=== PATIENT | female | born 1960 | race Caucasian/White ===

== ENCOUNTER 2019-04-27 22:31 | Emergency (ER) | payer OTHER ==
[~2019-04-27] VITALS: Ht 170.2 cm; Wt 115.5 kg
[~2019-04-27 22:31] MED LIST: CLEAPOW10 PO; CYCL5TAB PO; DEXA4TA PO; FULP6INJ SC; GABA-843 PO; IBUP80TA PO; LISI10TA4 PO; LORA-674 PO; METF-791 PO; PERC5TAB12 PO; PROC10TA4 PO; SIMV20TA22 PO
[2019-04-27] MEDS ORDERED: ONDA8TAB10 (22:49)
[2019-04-28 00:16] LABS: HEMATOCRIT 35.4 % (36.0-47.0); MEAN CORPUSCULAR HEMOGLOBIN 29.4 pg (27.0-33.0); MEAN CORPUSCULAR HGB CONC 33.9 g/dl (32.0-36.5); MEAN CORPUSCULAR VOLUME 86.8 fl (80.0-96.0); PLATELET COUNT, AUTOMATED 133 10^3/uL (150-450); RED BLOOD COUNT 4.08 10^6/uL (4.00-5.40); WHITE BLOOD COUNT 9.5 10^3/uL (4.0-10.0)
[2019-04-28 00:28] LABS: ALBUMIN 3.3 GM/DL (3.2-5.2); ALT/SGPT 21 U/L (12-78); BILIRUBIN,TOTAL 0.6 MG/DL (0.2-1.0); BLOOD UREA NITROGEN 14 MG/DL (7-18); CALCIUM LEVEL 7.8 MG/DL (8.5-10.1); CARBON DIOXIDE LEVEL 25 MEQ/L (21-32); CHLORIDE LEVEL 106 MEQ/L (98-107); CREATININE FOR GFR 0.81 MG/DL (0.55-1.30); GLOMERULAR FILTRATION RATE > 60.0 (>51); GLUCOSE, FASTING 125 MG/DL (70-100); POTASSIUM SERUM 3.4 MEQ/L (3.5-5.1); SODIUM LEVEL 137 MEQ/L (136-145); TOTAL PROTEIN 6.7 GM/DL (6.4-8.2)
[2019-04-28] MEDS ORDERED: ACETAMINOPHEN TAB 650MG DOSE (2X325MG) PO ONE (00:30)
[2019-04-28 00:39] LABS: ATYPICAL LYMPH 1 % (0-5); LYMPHOCYTES 14 % (16-44); METAMYELOCYTES 9 % (0-0); MYELOCYTES 2 % (0-0); NEUTROPHILS 73 % (28-66); PLATELET ESTIMATE NORMAL (NORMAL)
[2019-04-28 01:46] VITALS: BP 150/68
--- NOTE | 2019-04-28 09:33 | REP ---
PA AND LATERAL CHEST: 04/27/2019. Clinical history: Fever. Findings: No prior studies. The lungs are well inflated. There are perihilar cuffed bronchi suggesting a bronchitis or reactive airway disease. No dense consolidation or effusion. The heart, mediastinal and hilar contours were normal. Aorta and airway were intact. Bony thorax shows marginal osteophytes but no compression deformity. No free air under the diaphragm. Impression: 1. Perihilar changes of bronchitis or reactive airway disease without dense consolidation, pleural effusion, atelectasis or mass. 2. No cardiomegaly or edema. Electronically Signed by London Kendall MD 04/28/2019 07:52 P
== END 2019-04-28 01:59 | disposition home or self-care (01) ==
LOC: M ED 22:31
DX: R50.9 Fever, unspecified (principal); E11.9 Type 2 diabetes mellitus without complications; I10 Essential (primary) hypertension; E78.00 Pure hypercholesterolemia, unspecified; Z79.899 Other long term (current) drug therapy; Z79.84 Long term (current) use of oral hypoglycemic drugs

== ENCOUNTER → 2019-06-08 | Outpatient (CLI) | payer OTHER ==
[~2019-06-08] MED LIST changes: +MIRA3350 PO; +ONDA8TAB10; +ZARX0.05 SUBQ
--- NOTE | 2019-06-12 09:01 | RADONC ---
RADIATION ONCOLOGY CONSULTATION NOTE DATE OF SERVICE: 06/08/2019 CHART NUMBER: [id number] DIAGNOSIS: Left breast cancer. STAGE: Stage I A, T1b, N1a, M0 grade 1, well-differentiated infiltrating ductal carcinoma of the left breast, ER positive, OH positive, HER2/ray negative, oncotype score 26. ECOG PERFORMANCE STATUS: 0. CONSULTATION NOTE: Ms. Gillespie is the delightful 58-year-old white female with the diagnosis of what appears to be a stage I A, T1b, N1a, M0, well-differentiated infiltrating ductal carcinoma of the left breast, which is ER positive, OH positive, HER2/ray negative with an oncotype score of 26 who is presenting to us today status post lumpectomy, sentinel lymph node biopsy and systemic therapy consisting of cyclophosphamide and docetaxel, as well as intraoperative radiation therapy to the primary site for consideration of postoperative radiation therapy in order to achieve the increased likelihood of achieving local control and cure. HISTORY OF PRESENT ILLNESS: The patient was in the usual state of health until mammogram was undertaken, which revealed a lesion in the lower outer quadrant of her left breast. On 01/24/2019, the patient underwent lumpectomy and sentinel lymph node biopsy. Pathology revealed a well-differentiated 6 mm infiltrating ductal carcinoma. The tumor was noted to be estrogen receptor and progesterone receptor positive and HER2/ray negative. Margins of resection were negative for malignancy. There was some focal atypical ductal hyperplasia. There was infiltrating ductal carcinoma with partial thermal artifact at the lateral margin. One of two sentinel lymph nodes were biopsied and there was 6 mm of invasive metastatic disease in the axillary lymph node. This included extra alem extension into the adipose tissue. The patient received intraoperative radiation therapy to her primary site for a dose of 2000 cGy. The patient did well and has subsequently been treated with chemotherapy consisting of Cytoxan and Taxotere. She reports that her last chemotherapy was Tuesday this week, 06/05/2019. She is now presenting for consideration of postoperative radiation therapy, especially in the light of her extranodal extension in the axilla. PAST MEDICAL HISTORY: The patient's past medical history is positive for diabetes, hypertension, pneumonia 10 or 15 years ago and arthritis. ALLERGIES: The patient has NO KNOWN DRUG ALLERGIES. SOCIAL HISTORY: The patient does not smoke cigarettes. She drinks alcohol socially. FAMILY HISTORY: The patient's family history is positive for both mother and sister with ovarian cancer. REVIEW OF SYSTEMS: The patient's review of systems is positive for some shortness of breath and some chills after chemotherapy but is otherwise noncontributory. Denies nausea, vomiting, fevers, chills, night sweats, diplopia, headaches, anxiety or depression, anorexia, weight loss, visual disturbances, chest pain, urinary or bowel difficulties, bone pain, or neurological problems. PHYSICAL EXAMINATION: The patient is a well-developed, well-nourished female in no acute distress. HEENT exam is normocephalic, atraumatic. Extraocular movements are intact. There is no palpable cervical, supraclavicular, infraclavicular, axillary, or inguinal lymphadenopathy present. Lungs are clear to auscultation and percussion. Heart has a regular rate and rhythm. Abdomen is benign with no hepatosplenomegaly, masses, or tenderness. Breast examination reveals no masses or discharge bilaterally. Skeletal examination reveals no tenderness to pressure or percussion of the bony skeleton. Extremities reveal no clubbing, cyanosis, or edema. Neurologic exam is grossly intact, as is the remainder of the physical examination. MEDICAL NECESSITY: IMRT/IGRT is clinically indicated for a highly conformal dose planning regard. The target volume is in close proximity to critical structures, such as the heart, lungs, spinal cord, stomach, and esophagus. The volume of interest must be covered with narrow margins to adequately protect immediately adjacent structures. The plan requires interpretations of complex testing such as CT localization. As noted above, special planning (IMRT) and localizing [IGRT) is required and essential to maximize protect sensitive normal tissue structures which cannot be accomplished using conventional three-dimensional planning. ASSESSMENT: I had a lengthy discussion with this patient and her daughter. I believe she is a candidate for external beam radiation therapy and I have so informed. In light of the patient's pathology with extranodal extension in 1/2 of her sentinel lymph nodes, I believe local regional radiation will ex assistant/program director in achieving improved local control. I discussed with the patient and her daughter in detail the logistics of treatment planning, simulation, subsequent fractionated daily radiation treatments. I discussed as well the primary site which has received 2000 cGy of intraoperative radiation. This boost alone may lead to some fibrosis, but when combined with external beam radiation I suspect there will be some nodularity and fibrosis in that area. In addition, I am scheduling the patient for discussion at our multidisciplinary tumor conference to discuss these issues. The patient and her family expressed the desire to deliver the optimal amount of radiation, fully aware that there might be some fibrosis and nodularity resulting in the primary site region. In light of the fact that the patient just last chemo, we are scheduling her for simulation and initiation of treatment planning utilizing IMRT / IGRT in an effort to come off the heart and other normal structures. Radiation should begin therefore in early July, approximately a month post completion of systemic therapy. Care will be taken to keep the area of the primary site, which has undergone intraoperative radiation, out of the higher dose zones. cc: Patricia Lim, ANP-BC MD Paolo Fontenot MD
== END ==
LOC: M ONCR 09:11
PROVIDERS: ATTEND Radiology Radiation Oncology
DX: C50.119 Malignant neoplasm of central portion of unspecified female breast (principal)

== ENCOUNTER 2019-07-02 13:48 | Outpatient (RCR) | payer OTHER ==
--- NOTE | 2019-07-02 14:34 | RADONC ---
RADIATION ONCOLOGY SIMULATION NOTE DATE: 07/02/2019 CHART NUMBER: [id number] SIMULATION NOTE: Ms. Gillespie was taken to the CT scan for CT simulation of her left breast and supraclavicular angela. CT was accomplished without difficulty or discomfort. Radiation treatment planning is underway and radiation treatments will begin subsequently. An immobilization device was created and will be used throughout the course of treatment. It was created without difficulty or discomfort. I was physically present throughout the course of CT simulation.
== END 2019-07-03 ==
LOC: M ONCR 13:48
PROVIDERS: ATTEND Radiology Radiation Oncology
DX: C50.312 Malignant neoplasm of lower-inner quadrant of left female breast (principal)

== ENCOUNTER → 2019-07-10 | Outpatient (CLI) | payer OTHER ==
--- NOTE | 2019-07-10 14:48 | REP ---
WHOLE BODY BONE SCAN: Following the intravenous administration of 22 mCi of technetium-99m MDP, patient's whole body is imaged in the anterior and posterior projections. Additional oblique and lateral views are obtained. There is a tiny focus of increased uptake along the right orbit superolaterally. This is of uncertain significance. There is mild degenerative uptake at the L4-5 level posteriorly on the left. No other abnormalities are seen scintigraphically. Renal and bladder activity are seen. IMPRESSION: Tiny focus of increased uptake along the right orbit superolaterally. This is of doubtful significance. Further evaluation may be made with CT scan to rule out underlying osseous abnormality. Otherwise there is no compelling scintigraphic evidence of osseous metastases. Electronically Signed by Alvin Alicia MD 07/10/2019 03:14 P
== END ==
LOC: M RAD 09:27
PROVIDERS: ATTEND Internal Medicine Hematology & Oncology
DX: C50.919 Malignant neoplasm of unspecified site of unspecified female breast (principal); M89.8X0 Other specified disorders of bone, multiple sites
CPT/HCPCS: 78306; A9503

== ENCOUNTER → 2019-08-02 | Outpatient (RCR) | payer OTHER ==
--- NOTE | 2019-07-16 11:45 | RADONC ---
RADIATION ONCOLOGY PROGRESS NOTE DATE: 07/16/2019 CHART NUMBER: [id number] PROGRESS NOTE: Ms. Gillespie underwent her first fraction of radiation today to her left breast. It was tolerated without difficulty or discomfort. REVIEW OF SYSTEMS: The patient's review of systems remains noncontributory and unchanged. Denies nausea, vomiting, fevers, chills, night sweats, diplopia, headaches, anxiety or depression, anorexia, weight loss, visual disturbances, chest pain, urinary or bowel difficulties, bone pain, or neurological problems. PHYSICAL EXAMINATION: Clearly, the patient's skin showed no evidence of radiation change present since this was her first fraction of treatment. The remainder of her physical exam remained unchanged as well. Ms. Gillespie tolerated her first fraction well and radiation will continue as scheduled. Care has been taken to not overlap with the high dose intraoperative radiation area.
--- NOTE | 2019-07-23 14:29 | RADONC ---
RADIATION ONCOLOGY PROGRESS NOTE DATE: 07/23/2019 CHART #: [id number] Ms. Gillespie is presently at a dose of 1080 cGy to her left breast and is tolerating treatments quite well at this point with no complaints related to her radiation therapy. REVIEW OF SYSTEMS: The patient's review of systems is noncontributory. Denies nausea, vomiting, fevers, chills, night sweats, diplopia, headaches, anxiety or depression, anorexia, weight loss, visual disturbances, chest pain, urinary or bowel difficulties, bone pain, or neurological problems. PHYSICAL EXAMINATION: The patient's skin is in good condition with no evidence of moist or dry desquamation. The remainder of her physical exam remains unchanged. Ms. Gillespie is tolerating treatments quite well and radiation will continue as scheduled. The patient did ask if we were protecting her heart and I have reassured her that we have added blocking to avoid radiation to the heart. In addition, we have added blocking to avoid further radiation to the large dose area of her intraoperative radiation to avoid significant fibrosis to that area. Radiation once again will continue as scheduled.
--- NOTE | 2019-07-31 06:52 | RADONC ---
RADIATION ONCOLOGY PROGRESS NOTE DATE: 07/30/2019 CHART #: [id number] Ms. Gillespie is presently at a dose of 1980 cGy to her left breast and is tolerating her treatments quite well at this point with no complaints related to her radiation therapy. She is having no breast or bone pain. REVIEW OF SYSTEMS: The patient's review of systems is noncontributory. Denies nausea, vomiting, fevers, chills, night sweats, diplopia, headaches, anxiety or depression, anorexia, weight loss, visual disturbances, chest pain, urinary or bowel difficulties, bone pain, or neurological problems. PHYSICAL EXAMINATION: The patient's skin is in excellent condition with no evidence of moist or dry desquamation. The remainder of her physical exam remains unchanged. Ms. Gillespie is tolerating treatments quite well and radiation will continue as scheduled.
== END ==
LOC: M ONCR 07-09 11:54
PROVIDERS: ATTEND Radiology Radiation Oncology
DX: C50.312 Malignant neoplasm of lower-inner quadrant of left female breast (principal)

== ENCOUNTER 2019-08-23 11:15 | Outpatient (RCR) | payer OTHER ==
--- NOTE | 2019-08-09 08:49 | RADONC ---
RADIATION ONCOLOGY PROGRESS NOTE DATE: 08/06/2019 CHART #: [id number] Ms. Gillespie is presently at a dose of 2700 cGy to her left breast and is tolerating treatments quite well at this point with no complaints related to her radiation therapy. She is having no breast or bone pain. REVIEW OF SYSTEMS: The patient's review of systems is noncontributory. Denies nausea, vomiting, fevers, chills, night sweats, diplopia, headaches, anxiety or depression, anorexia, weight loss, visual disturbances, chest pain, urinary or bowel difficulties, bone pain, or neurological problems. PHYSICAL EXAMINATION: The patient's skin is in good condition with no evidence of moist or dry desquamation. The remainder of her physical exam remains unchanged. Ms. Gillespie is tolerating treatments quite well and radiation will continue as scheduled.
--- NOTE | 2019-08-14 13:20 | RADONC ---
RADIATION ONCOLOGY PROGRESS NOTE DATE: 08/13/2019 CHART #: [id number] Ms. Gillespie is presently at a dose of 3240 cGy to her left breast and is tolerating treatments quite well at this point with no complaints related to her radiation therapy other than some tenderness of the breast. REVIEW OF SYSTEMS: The patient's review of systems is positive for breast tenderness but is otherwise noncontributory. Denies nausea, vomiting, fevers, chills, night sweats, diplopia, headaches, anxiety or depression, anorexia, weight loss, visual disturbances, chest pain, urinary or bowel difficulties, bone pain, or neurological problems. PHYSICAL EXAMINATION: The patient's skin is in good condition with no evidence of moist or dry desquamation. The remainder of her physical exam remains unchanged as well. Ms. Gillespie is tolerating treatments quite well and radiation will continue as scheduled.
--- NOTE | 2019-08-22 09:32 | RADONC ---
RADIATION ONCOLOGY PROGRESS NOTE DATE: 08/20/2019 CHART #: [id number] Ms. Gillespie is presently at a dose of 4140 cGy to her left breast and is tolerating treatments quite well at this point with no significant difficulties related to her radiation therapy other than some mild skin discomfort. REVIEW OF SYSTEMS: The patient's review of systems is noncontributory. Denies nausea, vomiting, fevers, chills, night sweats, diplopia, headaches, anxiety or depression, anorexia, weight loss, visual disturbances, chest pain, urinary or bowel difficulties, bone pain, or neurological problems. PHYSICAL EXAMINATION: The patient's skin is in good condition with no evidence of moist or dry desquamation. There is dark tanning present in the inframammary and axillary regions. The remainder of her physical exam remains unchanged. Ms. Gillespie is tolerating treatments quite well and radiation will continue as scheduled. I have sent in a prescription for Silvadene.
[~2019-08-23 11:15] MED LIST changes: +ARIM1TAB5 PO; -METF-791 PO; +METF-838 PO; +SILV40CR EXT
--- NOTE | 2019-08-29 13:28 | RADONC ---
RADIATION ONCOLOGY TREATMENT SUMMARY: DATE: 08/23/2019 CHART NUMBER: [id number] DIAGNOSIS: Left breast cancer. STAGE: IA, T1b, N1aM0, grade 1, well-differentiated infiltrating ductal carcinoma of the left breast, ER positive, NH positive, HER2/ray negative, Oncotype score 26. ECOG PERFORMANCE STATUS: 0 TREATMENT SUMMARY: Ms Gillespie is a very pleasant 59year-old white female with the diagnosis of what appears to be stage IA, T1b, N1a, M0, well-differentiated infiltrating ductal carcinoma of the left breast which was ER positive, NH positive, HER2/ray negative with an Oncotype score of 26, who presented to us status post lumpectomy, sentinel lymph node biopsy and systemic therapy consisting of cyclophosphamide and docetaxel as well as intraoperative radiation therapy to the primary site for consideration of postoperative radiation therapy in an attempt to increase the likelihood of achieving local control. We treated the patient to her left breast and lymph node drainage sites for a total dose of 4680 cGy delivery in 26 fractions of 180 cGy each over 38 elapsed days from 07/16/2019 through 08/23/2019. The patient's left breast was treated on a linear accelerator utilizing a 3D conformal technique with medial and lateral tangential angela with a combination of 6-MVand 15-MV photons. We took great care to blocked out the original radiation site which received 2000 cGy via intraoperative radiation. That area already had some fibrosis which was visible, and great care was taken not to overlap with it and cause further cosmetic losses. The non-previously irradiated areas, with careful planning, all received a consistent dose of 4680 cGy. Ms. Gillespie tolerated her treatments quite well, and was able to complete therapy as prescribed without interruption. I have scheduled the patient to see me again in 1 month for further followup. She will also continue to be followed by her other physicians as well. Thank you for allowing us to participate in the care of this very pleasant woman. If I could be of any further assistance or provide you with information, please feel free to contact me anytime. cc: MD Patricia Hamlin, ANP-BC Paolo Stroud MD
== END 2019-09-02 ==
LOC: M ONCR 11:15
PROVIDERS: ATTEND Radiology Radiation Oncology
DX: C50.312 Malignant neoplasm of lower-inner quadrant of left female breast (principal)

== ENCOUNTER → 2019-08-30 | Outpatient (CLI) | payer OTHER ==
--- NOTE | 2019-09-05 09:48 | DEXA ---
AP SPINE L1 - L4 1.403 1.7 2.8 LT FEMUR TOTAL 1.274 2.1 3.0 LT NECK 1.156 0.9 2.1 RT FEMUR TOTAL 1.185 1.4 2.3 RT NECK 1.136 0.7 1.9 TOTAL BODY TOTAL OTHER COMMENTS: Normal bone densitometry of the spine and hips. FOLLOW-UP: Recommendation for the next bone density exam: 5 years. ZENA
== END ==
LOC: M WHC 11:05
PROVIDERS: ATTEND Internal Medicine Hematology & Oncology
DX: C50.912 Malignant neoplasm of unspecified site of left female breast (principal); Z78.0 Asymptomatic menopausal state

== ENCOUNTER → 2019-09-19 | Outpatient (CLI) | payer OTHER ==
--- NOTE | 2019-09-20 20:08 | RADONC ---
RADIATION ONCOLOGY FOLLOWUP NOTE DATE: 09/19/2019 This is a telemedicine visit. The patient was informed of the risks including security breech, technological failure, inability to perform a comprehensive physical exam which could delay or prevent an accurate diagnosis, and potential complications from treatment decisions rendered over a telemedicine platform. The patient understands and consented to the use of telehealth services phone only. CHART NUMBER: [id number] DIAGNOSIS: Left breast cancer. STAGE: 1 A, T1b, N1a, M0, grade 1, well-differentiated infiltrating ductal carcinoma of the left breast, ER positive, NC positive, HER2/ray negative, Oncotype score 26. ECOG PERFORMANCE STATUS: Zero. FOLLOWUP NOTE: Ms. Gillespie is a delightful 59-year-old white female with a diagnosis of a well-differentiated infiltrating ductal carcinoma of the left breast who is presenting to us today for routine followup visit 1 month post completion of external beam radiation therapy. The patient presents today reporting that she is doing quite well with no complaints at this time related to her radiation therapy or disease. She has no breast or bone pain. REVIEW OF SYSTEMS: The patient's review of systems is noncontributory. She denies nausea, vomiting, fevers, chills, night sweats, diplopia, headaches, anxiety or depression, anorexia, weight loss, visual disturbances, chest pain, urinary or bowel difficulties, bone pain, or neurological problems. PHYSICAL EXAMINATION: Physical examination was deferred as this was a COVID-19 precaution, and it is a telephone consult. The patient is clinically ADARSH at this time and was just seen by her surgeon, Dr. Paolo Willson MD last week. In light of this, I have scheduled her for a routine followup in our office in three months' time. I explained to her that I will be retiring, and she will be seeing the new physician, Dr. Waggoner. In the meantime, she will continue her followup with her other physicians as well. cc: MD Patricia Muse, ANP- Paolo Willson MD
== END ==
LOC: M ONCR 13:27
PROVIDERS: ATTEND Radiology Radiation Oncology
DX: C50.312 Malignant neoplasm of lower-inner quadrant of left female breast (principal)

== ENCOUNTER → 2021-06-03 | Outpatient (CLI) | payer OTHER ==
[~2021-06-03] MED LIST changes: +AMOX500C PO; +CETI-24 PO; +GABA-282 PO; -GABA-843 PO; +LISI10TA22 PO; -LISI10TA4 PO; +MAGN400T33 PO; +METF10004 PO; +ONDA-84 PO; -ONDA8TAB10; +OXYB5TAB10 PO; -PROC10TA4 PO; +PROC10TA5 PO
== END ==
LOC: M LABSMTC 11:27
PROVIDERS: ATTEND Anesthesiology
DX: Z01.818 Encounter for other preprocedural examination (principal); Z11.52 Encounter for screening for COVID-19

== ENCOUNTER → 2021-06-18 | Outpatient (CLI) | payer OTHER | LOC: M LABSMTC 09:25 | PROVIDERS: ATTEND Internal Medicine Gastroenterology | DX: Z01.818 Encounter for other preprocedural examination (principal); Z11.52 Encounter for screening for COVID-19 ==

== ENCOUNTER → 2021-07-23 | Outpatient (CLI) | payer OTHER | LOC: M LABSMTC 10:23 | PROVIDERS: ATTEND Anesthesiology | DX: Z01.818 Encounter for other preprocedural examination (principal); Z11.52 Encounter for screening for COVID-19 ==

== ENCOUNTER → 2021-07-30 | Outpatient (CLI) | payer OTHER | LOC: M LABSMTC 09:13 | PROVIDERS: ATTEND Anesthesiology | DX: Z01.818 Encounter for other preprocedural examination (principal); Z11.52 Encounter for screening for COVID-19 ==

== ENCOUNTER → 2021-09-02 | Outpatient (CLI) | payer OTHER | LOC: M LABSMTC 09:34 | PROVIDERS: ATTEND Anesthesiology | DX: Z01.818 Encounter for other preprocedural examination (principal); Z11.52 Encounter for screening for COVID-19 ==

== ENCOUNTER 2021-09-07 08:52 | Day surgery (SDC) | payer OTHER ==
[~2021-09-07] VITALS: Ht 170.2 cm; Wt 105.9 kg
[~2021-09-07 08:52] MED LIST changes: +LIDOCAINE 2% 100MG/5ML SDV (FOR ANES.) As Ordered ONE; +NS 1,000 ML IV ONE; +propofoL 200 MG/20 ML VIAL As Ordered ONE; +propofoL 500 MG/50 ML VIAL As Ordered ONE
[2021-09-07] MEDS ORDERED: LABETALOL 100MG/20ML VIAL As Ordered ONE (10:31)
[2021-09-07 11:05] VITALS: BP 156/70
== END 2021-09-07 11:17 | disposition home or self-care (01) ==
LOC: M OPP 08:52
PROVIDERS: ATTEND Internal Medicine Gastroenterology
DX: Z12.11 Encounter for screening for malignant neoplasm of colon (principal); K64.8 Other hemorrhoids; E11.9 Type 2 diabetes mellitus without complications; Z79.1 Long term (current) use of non-steroidal anti-inflammatories (NSAID); Z79.02 Long term (current) use of antithrombotics/antiplatelets; Z79.84 Long term (current) use of oral hypoglycemic drugs; Z79.899 Other long term (current) drug therapy; Z85.3 Personal history of malignant neoplasm of breast; Z92.3 Personal history of irradiation; Z92.21 Personal history of antineoplastic chemotherapy

== ENCOUNTER → 2022-05-20 | Outpatient (CLI) | payer OTHER ==
[~2022-05-20] MED LIST changes: -LIDOCAINE 2% 100MG/5ML SDV (FOR ANES.) As Ordered ONE; -NS 1,000 ML IV ONE; -propofoL 200 MG/20 ML VIAL As Ordered ONE; -propofoL 500 MG/50 ML VIAL As Ordered ONE
== END ==
LOC: M WHC 09:02
PROVIDERS: ATTEND Internal Medicine Medical Oncology
DX: M81.0 Age-related osteoporosis without current pathological fracture (principal)

== ENCOUNTER 2022-07-19 10:07 | Emergency (ER) | payer OTHER ==
[~2022-07-19] VITALS: Ht 167.6 cm; Wt 104.1 kg
[2022-07-19] MEDS ORDERED: BENA25CA4 PO (10:42)
[2022-07-19] MEDS ORDERED: FAMOTIDINE 20MG/2ML VIAL IVP ONE (10:50)
[2022-07-19 11:15] VITALS: BP 158/70
[2022-07-19 11:29] LABS: HEMATOCRIT 40.6 % (36.0-47.0); HEMOGLOBIN 13.2 g/dl (12.0-15.5); MEAN CORPUSCULAR HEMOGLOBIN 28.8 pg (27.0-33.0); MEAN CORPUSCULAR HGB CONC 32.5 g/dl (32.0-36.5); MEAN CORPUSCULAR VOLUME 88.5 fl (80.0-96.0); PLATELET COUNT, AUTOMATED 191 10^3/uL (150-450); RED BLOOD COUNT 4.59 10^6/uL (4.00-5.40); WHITE BLOOD COUNT 11.9 10^3/uL (4.0-10.0)
[2022-07-19 11:55] LABS: BLOOD UREA NITROGEN 16 MG/DL (9-23); CALCIUM LEVEL 8.3 MG/DL (8.3-10.6); CARBON DIOXIDE LEVEL 26 MMOL/L (20-31); CHLORIDE LEVEL 105 MMOL/L (98-107); CREATININE FOR GFR 0.78 MG/DL (0.55-1.30); GLOMERULAR FILTRATION RATE > 60.0 (>45); GLUCOSE, FASTING 156 MG/DL (74-106); POTASSIUM SERUM 3.8 MMOL/L (3.5-5.1); SODIUM LEVEL 140 MMOL/L (136-145)
[2022-07-19] MEDS ORDERED: LOSA25TA13 PO (12:24)
== END 2022-07-19 13:55 | disposition home or self-care (01) ==
LOC: EDBD 10:07 → M ED 10:07
DX: T78.3XXA Angioneurotic edema, initial encounter (principal); R21 Rash and other nonspecific skin eruption; R22.0 Localized swelling, mass and lump, head; E11.9 Type 2 diabetes mellitus without complications; T46.4X5A Adverse effect of angiotensin-converting-enzyme inhibitors, initial encounter; I10 Essential (primary) hypertension; E78.5 Hyperlipidemia, unspecified; Z85.3 Personal history of malignant neoplasm of breast; Z79.899 Other long term (current) drug therapy; Z79.84 Long term (current) use of oral hypoglycemic drugs
CPT/HCPCS: 80048; 85027; 93041; 94760; 96374; 96375; 99284; J1100; S0028

== ENCOUNTER → 2022-08-20 | Outpatient (REF) | payer OTHER ==
[~2022-08-20] MED LIST changes: +BENA25CA4 PO; +LOSA25TA13 PO
== END ==
LOC: M SFHCWAGY 18:08
PROVIDERS: ATTEND Nurse Practitioner Family
DX: Z12.4 Encounter for screening for malignant neoplasm of cervix (principal)

== ENCOUNTER → 2024-06-18 | Outpatient (CLI) | payer OTHER ==
[~2024-06-18] MED LIST changes: -CYCL5TAB PO; +CYCL5TAB4 PO; +GABA-1172 PO; -GABA-282 PO; +LORA-1041 PO; -LORA-674 PO; -OXYB5TAB10 PO; +OXYB5TAB14 PO
== END ==
LOC: M WHC 07:27
DX: Z79.899 Other long term (current) drug therapy (principal); C50.919 Malignant neoplasm of unspecified site of unspecified female breast

== ENCOUNTER → 2024-07-16 | Outpatient (CLI) | payer OTHER | LOC: M RAD 14:12 | PROVIDERS: ATTEND Registered Nurse | DX: R05.9 Cough, unspecified (principal) ==